=== PATIENT | male | born 1980 | race African-American/Black ===

== ENCOUNTER 2017-10-07 06:08 | Emergency (ER) | payer MEDICAID ==
[~2017-10-07] VITALS: Ht 190.5 cm; Wt 107.0 kg
[2017-10-07 06:27] VITALS: BP 136/84
== END 2017-10-07 06:55 | disposition left against medical advice (07) ==
LOC: ER 06:08
DX: R19.7 Diarrhea, unspecified (principal); F17.200 Nicotine dependence, unspecified, uncomplicated; Z53.21 Procedure and treatment not carried out due to patient leaving prior to being seen by health care provider